=== PATIENT | female | born 2000 | race Caucasian/White ===

== ENCOUNTER 2020-02-18 22:08 | Inpatient (IN) ==
[2020-02-18] MEDS: LACTATED RINGERS 1,000 ML IV SCH (22:36)
[2020-02-18] MEDS ORDERED: BUTORPHANOL 2 MG/ML VIAL IV PRN (22:45)
[2020-02-18] MEDS ORDERED: MEPERIDINE 50 MG/1 ML VIAL IV PRN (22:45)
[2020-02-18] MEDS ORDERED: LACTATED RINGERS 500 ML IV PRN (22:45)
[2020-02-18 23:34] LABS: Basophils % 0.2 % (0.0-0.8); Eosinophils # 0.1 10*3/uL (0.0-0.87); Eosinophils % 0.6 % (0.00-10.9); Hematocrit 31.9 VOL% (35.7-47.0); Hemoglobin 10.6 GM/DL (12.0-16.0); Immature Granulocytes % 0.8 %; Immature Granulocytes Absolute 0.08 #; Lymphocytes # 2.9 10*3/uL (1.4-4.0); Lymphocytes % 29.3 % (21.3-54.2); Mean Corpuscular HGB Conc 33.2 GM/DL (32-36); Mean Corpuscular Volume 89.4 FL (87-102); Mean Platelet Volume 9.8 FL (9.6-12.0); Monocytes % 6.7 % (1.7-12.7); Neutrophils % 62.4 % (38.7-73.9); Platelet Count 169 T/CUMM (130-400); Red Blood Count 3.57 MC/CUMM (3.8-5.5); Red Cell Distribution Width 13.1 % (9.3-17.3)
[2020-02-19 00:05] LABS: Albumin 2.5 G/DL (3.4-5.0); Bilirubin,Total 0.4 MG/DL (0.2-1.0); Osmolality,Calculated 275.5 MOS/KG (273-304); Total Protein 5.8 G/DL (6.4-8.3)
[2020-02-19] MEDS: LACTATED RINGERS 1,000 ML IV SCH (06:37)
[2020-02-19] MEDS: ONDANSETRON 4 MG/2 ML VIAL IV PRN (23:35)
[2020-02-20] MEDS ORDERED: OXYTOCIN/LR 20 UNIT/1,000 ML BAG IV SCH (05:00)
[2020-02-20] MEDS: LACTATED RINGERS 1,000 ML IV SCH (05:15)
[2020-02-20] MEDS: ONDANSETRON 4 MG/2 ML VIAL IV PRN ×2 (07:31→15:22)
[2020-02-20] MEDS ORDERED: TERBUTALINE 1 MG/1 ML VIAL ONE (08:08)
[2020-02-20] MEDS ORDERED: TERBUTALINE 1 MG/1 ML VIAL SUBCUT ONE (08:09)
[2020-02-20] MEDS ORDERED: LACTATED RINGERS 500 ML IV ONE (08:41)
[2020-02-20] MEDS ORDERED: NALOXONE 0.4 MG/ML VIAL IV PRN (08:41)
[2020-02-20] MEDS ORDERED: diphenhydrAMINE 50 MG/1 ML VIAL IV PRN (08:41)
[2020-02-20] MEDS ORDERED: FAMOTIDINE 20 MG/2 ML VIAL IV ONE (08:41)
[2020-02-20] MEDS ORDERED: ePHEDrine 50 MG/ML VIAL IV PRN (08:41)
[2020-02-20] MEDS ORDERED: CITRIC ACID/SODIUM CITRATE 30 ML UDCUP PO ONE (08:41)
[2020-02-20] MEDS ORDERED: hydrOXYzine HCL 25 MG/1 ML VIAL IM PRN (08:41)
[2020-02-20] MEDS ORDERED: PROMETHAZINE 25 MG/1 ML VIAL IM PRN (08:41)
[2020-02-20] MEDS ORDERED: fentaNYL 2 MCG/ROPIV 0.2% EPID 100 ML EPIDURAL SCH (09:00)
[2020-02-20] MEDS ORDERED: ceFAZolin 2,000 MG in PREMIX 1 EACH IV ONE (09:45)
[2020-02-20] MEDS ORDERED: TRANEXAMIC ACID 1,000 MG/10 ML VIAL ONE (09:47)
[2020-02-20] MEDS ORDERED: METHYLERGONOVINE 0.2 MG/1 ML AMP ONE (09:47)
[2020-02-20] MEDS ORDERED: miSOPROStoL 200 MCG TABLET ONE (09:47)
[2020-02-20] MEDS ORDERED: CARBOPROST TROMETHAMINE 250 MCG/ML AMP IM ONE (09:47)
[2020-02-20 10:54] LABS: Cord Arterial Blood HCO3 19.2 MMOL/L
[2020-02-20 10:56] LABS: Cord Venous Blood HCO3 14.4 MMOL/L; Cord Venous Blood PCO2 60.1 MMHG; Cord Venous Blood PO2 15.1
[2020-02-20] MEDS ORDERED: propofoL 200 MG/20 ML VIAL IV ONE (11:03)
[2020-02-20] MEDS ORDERED: PHENYLEPHRINE 10 MG/1 ML VIAL IV ONE (11:04)
[2020-02-20] MEDS ORDERED: ACETAMINOPHEN 1,000 MG/100 ML VIAL IV ONE (11:04)
[2020-02-20] MEDS ORDERED: MORPHINE 10 MG/10 ML VIAL ONE (11:04)
[2020-02-20] MEDS ORDERED: LIDOCAINE MPF 2% /EPI 20 ML VIAL ONE (11:04)
[2020-02-20] MEDS ORDERED: KETOROLAC 30 MG/1 ML VIAL ONE (11:04)
[2020-02-20] MEDS ORDERED: ONDANSETRON 4 MG/2 ML VIAL ONE (11:04)
[2020-02-20] MEDS ORDERED: SODIUM CHLORIDE 0.9% 100 ML IV ONE (11:04)
[2020-02-20] MEDS ORDERED: MEASLES/MUMPS/RUBELLA VACCINE 0.5 ML VIAL SUBCUT ONE (11:23)
[2020-02-20] MEDS ORDERED: OXYTOCIN/LR 20 UNIT/1,000 ML BAG IV ONE (11:23)
[2020-02-20] MEDS ORDERED: RHO(D) IMMUNE GLOBULIN 300 MCG SYRINGE IM ONE (11:23)
[2020-02-20] MEDS ORDERED: WITCH HAZEL PADS 100/JAR TOP PRN (11:23)
[2020-02-20] MEDS ORDERED: ONDANSETRON 4 MG/2 ML VIAL IV PRN (11:23)
[2020-02-20] MEDS ORDERED: BENZOCAINE 20%/MENTHOL 0.5% SPRAY 56 GM CAN TOP PRN (11:23)
[2020-02-20] MEDS ORDERED: BISACODYL 10 MG SUPP RECTAL PRN (11:23)
[2020-02-20] MEDS ORDERED: DIPH/TET/ACEL PERT BOOSTER VACCINE 0.5 ML VIAL IM ONE (11:23)
[2020-02-20] MEDS ORDERED: LANOLIN 50% CREAM 0.3 OZ TUBE TOP PRN (11:23)
[2020-02-20] MEDS ORDERED: HYDROCORTISONE 2.5% RECTAL CREAM 30 GM TUBE TOP PRN (11:23)
[2020-02-20] MEDS ORDERED: oxyCODONE/ACETAMINOPHEN 5-325 MG TABLET PO PRN (11:23)
[2020-02-20] MEDS ORDERED: ACETAMINOPHEN 325 MG TABLET PO PRN (11:23)
[2020-02-20] MEDS ORDERED: SODIUM CHLORIDE 0.9% 50 ML IV ONE (17:44)
[2020-02-20] MEDS: ceFAZolin 1,000 MG in SYRINGE 1 EACH IV SCH (17:53)
[2020-02-21] MEDS: ceFAZolin 1,000 MG in SYRINGE 1 EACH IV SCH (02:14)
[2020-02-21] MEDS: DOCUSATE SODIUM 100 MG CAPSULE PO SCH ×3 (02:59→21:09)
[2020-02-21 06:11] LABS: Basophils % 0.3 % (0.0-0.8); Eosinophils % 0.3 % (0.00-10.9); Hematocrit 26.7 VOL% (35.7-47.0); Hemoglobin 8.3 GM/DL (12.0-16.0); Immature Granulocytes % 0.8 %; Lymphocytes # 2.6 10*3/uL (1.4-4.0); Lymphocytes % 21.5 % (21.3-54.2); Mean Corpuscular HGB Conc 31.1 GM/DL (32-36); Mean Corpuscular Volume 93.4 FL (87-102); Mean Platelet Volume 9.6 FL (9.6-12.0); Monocytes % 7.9 % (1.7-12.7); Neutrophils % 69.2 % (38.7-73.9); Platelet Count 144 T/CUMM (130-400); Red Blood Count 2.86 MC/CUMM (3.8-5.5); Red Cell Distribution Width 13.2 % (9.3-17.3); White Blood Count 11.9 T/CUMM (4-12)
[2020-02-21] MEDS: oxyCODONE/ACETAMINOPHEN 5-325 MG TABLET PO PRN (15:17)
[2020-02-21] MEDS: IBUPROFEN 800 MG TABLET PO PRN (15:17)
[2020-02-22] MEDS: DOCUSATE SODIUM 100 MG CAPSULE PO SCH ×2 (09:03→21:53)
[2020-02-22] MEDS: IBUPROFEN 800 MG TABLET PO PRN (09:24)
[2020-02-22] MEDS: oxyCODONE/ACETAMINOPHEN 5-325 MG TABLET PO PRN (09:24)
[2020-02-22] MEDS ORDERED: SIMETHICONE CHEW 80 MG TABLET PO PRN (11:58)
[2020-02-22] MEDS: MAGNESIUM HYDROXIDE SUSP 30 ML UDCUP PO PRN (12:11)
[2020-02-23] MEDS: oxyCODONE/ACETAMINOPHEN 5-325 MG TABLET PO PRN (07:24)
[2020-02-23] MEDS: DOCUSATE SODIUM 100 MG CAPSULE PO SCH (07:25)
[2020-02-23 07:57] VITALS: BP 136/90
[2020-02-23] MEDS: MAGNESIUM HYDROXIDE SUSP 30 ML UDCUP PO PRN (08:48)
== END 2020-02-23 13:05 | disposition home or self-care (01) | DRG 788 ==
LOC: N.LDOUT 22:08 → N.LD 22:11 → N.OB 02-20 15:30
PROVIDERS: ADMIT Specialist; ATTEND Specialist
PROC: LDCSECT (ICD-10-PCS; 2020-02-20 10:00)

== ENCOUNTER 2020-08-16 16:42 | Observation (INO) ==
[2020-08-16] MEDS ORDERED: METOCLOPRAMIDE 10 MG/2 ML VIAL IV STA (17:25)
[2020-08-16] MEDS ORDERED: ONDANSETRON 4 MG/2 ML VIAL IV STA (17:25)
[2020-08-16] MEDS ORDERED: SODIUM CHLORIDE 0.9% 1,000 ML IV STA (17:25)
[2020-08-16] MEDS ORDERED: PANTOPRAZOLE 40 MG VIAL IV STA (17:25)
[2020-08-16 18:00] LABS: Basophils % 0.5 % (0.0-0.8); Eosinophils # 0.1 10*3/uL (0.0-0.87); Eosinophils % 0.7 % (0.00-10.9); Hematocrit 37.4 VOL% (35.7-47.0); Hemoglobin 13.6 GM/DL (12.0-16.0); Immature Granulocytes % 0.4 %; Immature Granulocytes Absolute 0.03 #; Lymphocytes # 2.5 10*3/uL (1.4-4.0); Lymphocytes % 30.5 % (21.3-54.2); Mean Corpuscular HGB Conc 36.4 GM/DL (32-36); Mean Corpuscular Volume 88.4 FL (87-102); Mean Platelet Volume 9.5 FL (9.6-12.0); Monocytes % 10.1 % (1.7-12.7); Neutrophils % 57.8 % (38.7-73.9); Platelet Count 215 T/CUMM (130-400); Red Blood Count 4.23 MC/CUMM (3.8-5.5); Red Cell Distribution Width 11.7 % (9.3-17.3); White Blood Count 8.3 T/CUMM (4-12)
[2020-08-16 18:18] LABS: Calcium 8.5 MG/DL (8.5-10.1); Osmolality,Calculated 269.8 MOS/KG (273-304); Potassium 3.3 MMOL/L (3.5-5.1)
[2020-08-16 18:24] LABS: Blood, Urine Negative (Negative); Glucose,Urine (UA) Negative (Negative); Ketones,Urine 80 mg/dL (Negative); Mucus,Urine Many /LPF (Occasional); Nitrite,Urine Negative (Negative); Protein,Urine 30 MG/DL; RBC,Urine 5 /HPF (0-4); Squamous Epithelial Cell,Urine Few /HPF (0-10); Urine Appearance Slightly Hazy (Clear); Urine Color Amber (Yellow); WBC,Urine 12 /HPF (0-6)
[2020-08-16 18:25] LABS: Bilirubin,Urine Small mg/dL (Negative)
[2020-08-16] MEDS ORDERED: POTASSIUM BICARB EFFERVESCENT 25 MEQ TABLET PO ONE (18:35)
[2020-08-16] MEDS ORDERED: cefTRIAXone 1,000 MG in SODIUM CHLORIDE 0.9% 100 ML IV STA (18:35)
[2020-08-16] MEDS ORDERED: BISACODYL 10 MG SUPP RECTAL PRN (18:39)
[2020-08-16] MEDS ORDERED: IBUPROFEN 800 MG TABLET PO PRN (18:39)
[2020-08-16] MEDS ORDERED: ACETAMINOPHEN 325 MG TABLET PO PRN (18:39)
[2020-08-16] MEDS ORDERED: MAGNESIUM HYDROXIDE SUSP 30 ML UDCUP PO PRN (18:39)
[2020-08-16] MEDS: DOCUSATE SODIUM 100 MG CAPSULE PO SCH ×2 (19:52)
[2020-08-16] MEDS: LACTATED RINGERS 1,000 ML IV SCH (20:48)
[2020-08-17] MEDS: ONDANSETRON 4 MG/2 ML VIAL IV PRN ×2 (04:20→09:10)
[2020-08-17] MEDS: LACTATED RINGERS 1,000 ML IV SCH ×2 (04:25→12:59)
[2020-08-17 06:06] LABS: Basophils % 0.5 % (0.0-0.8); Eosinophils # 0.1 10*3/uL (0.0-0.87); Hemoglobin 10.9 GM/DL (12.0-16.0); Immature Granulocytes % 0.5 %; Immature Granulocytes Absolute 0.03 #; Lymphocytes # 2.2 10*3/uL (1.4-4.0); Lymphocytes % 36.1 % (21.3-54.2); Mean Corpuscular HGB Conc 35.2 GM/DL (32-36); Mean Corpuscular Volume 91.2 FL (87-102); Mean Platelet Volume 9.4 FL (9.6-12.0); Monocytes % 9.7 % (1.7-12.7); Neutrophils % 52.2 % (38.7-73.9); Platelet Count 174 T/CUMM (130-400); Red Cell Distribution Width 11.7 % (9.3-17.3)
[2020-08-17 06:23] LABS: Calcium 8.1 MG/DL (8.5-10.1); Osmolality,Calculated 268.8 MOS/KG (273-304); Potassium 3.6 MMOL/L (3.5-5.1)
[2020-08-17] MEDS: METOCLOPRAMIDE 10 MG/2 ML VIAL IV PRN (09:07)
[2020-08-17] MEDS: DOCUSATE SODIUM 100 MG CAPSULE PO SCH ×2 (09:19→21:46)
[2020-08-17] MEDS ORDERED: SCOPOLAMINE 1.5 MG PATCH TRANSDERM ONE (12:44)
[2020-08-17] MEDS ORDERED: SODIUM CHLORIDE 0.9% 100 ML IV ONE (17:32)
[2020-08-17] MEDS ORDERED: cefTRIAXone 1,000 MG in SYRINGE 1 EACH IV SCH (18:00)
[2020-08-17] MEDS ORDERED: THIAMINE INJ 100 MG, FOLIC ACID INJ 1 MG, MULTIVITAMIN INJ 10 ML in SODIUM CHLORIDE 0.9... IV ONE (20:00)
[2020-08-18] MEDS: LACTATED RINGERS 1,000 ML IV SCH (05:39)
[2020-08-18 07:16] VITALS: BP 102/53
[2020-08-18] MEDS: METOCLOPRAMIDE 10 MG/2 ML VIAL IV PRN (08:19)
[2020-08-18] MEDS: DOCUSATE SODIUM 100 MG CAPSULE PO SCH (08:21)
[2020-08-18] MEDS: ONDANSETRON 4 MG/2 ML VIAL IV PRN (08:22)
== END 2020-08-18 12:00 | disposition home or self-care (01) ==
LOC: N.ED 16:42 → N.EDINP 16:42 → N.OB 19:52
PROVIDERS: ADMIT Nurse Practitioner Family; ATTEND Specialist

== ENCOUNTER 2021-03-18 05:27 | Inpatient (IN) ==
[2021-03-18] MEDS ORDERED: LACTATED RINGERS 500 ML IV PRN (05:37)
[2021-03-18] MEDS ORDERED: ONDANSETRON 4 MG/2 ML VIAL IV PRN ×2 (05:37→08:29)
[2021-03-18] MEDS ORDERED: LACTATED RINGERS 1,000 ML IV ONE ×2 (05:49→07:36)
[2021-03-18] MEDS ORDERED: diphenhydrAMINE 50 MG/1 ML VIAL IV PRN (05:49)
[2021-03-18] MEDS ORDERED: CITRIC ACID/SODIUM CITRATE 30 ML UDCUP PO ONE (05:49)
[2021-03-18] MEDS ORDERED: FAMOTIDINE 20 MG/2 ML VIAL IV ONE (05:49)
[2021-03-18] MEDS ORDERED: ceFAZolin 2,000 MG/50 ML DUPLEX IV ONE (05:53)
[2021-03-18] MEDS ORDERED: LACTATED RINGERS 1,000 ML IV SCH ×2 (06:00)
[2021-03-18 06:32] LABS: Basophils % 0.3 % (0.0-0.8); Eosinophils # 0.1 10*3/uL (0.0-0.87); Eosinophils % 0.8 % (0.00-10.9); Hematocrit 34.6 VOL% (35.7-47.0); Hemoglobin 11.2 GM/DL (12.0-16.0); Immature Granulocytes % 0.6 %; Immature Granulocytes Absolute 0.06 #; Lymphocytes # 2.5 10*3/uL (1.4-4.0); Lymphocytes % 25.1 % (21.3-54.2); Mean Corpuscular HGB Conc 32.4 GM/DL (32-36); Mean Platelet Volume 10.2 FL (9.6-12.0); Monocytes % 8.6 % (1.7-12.7); Neutrophils % 64.6 % (38.7-73.9); Platelet Count 166 T/CUMM (130-400); Red Blood Count 4.17 MC/CUMM (3.8-5.5); Red Cell Distribution Width 14.5 % (9.3-17.3); White Blood Count 9.8 T/CUMM (4-12)
[2021-03-18] MEDS ORDERED: BUPIVACAINE SPINAL 0.75% 2 ML AMP SPINAL ONE (07:00)
[2021-03-18 07:04] LABS: Albumin 2.6 G/DL (3.4-5.0); Bilirubin,Total 0.7 MG/DL (0.20-1.00); Calcium 8.5 MG/DL (8.5-10.1); Osmolality,Calculated 271.7 MOS/KG (273-304); Potassium 3.9 MMOL/L (3.5-5.1); Total Protein 6.1 G/DL (6.4-8.2)
[2021-03-18] MEDS ORDERED: METHYLERGONOVINE 0.2 MG/1 ML AMP ONE (07:04)
[2021-03-18] MEDS ORDERED: miSOPROStoL 200 MCG TABLET ONE (07:04)
[2021-03-18] MEDS ORDERED: OXYTOCIN/LR 20 UNIT/1,000 ML BAG IV ONE ×3 (07:04→08:29)
[2021-03-18] MEDS ORDERED: CARBOPROST TROMETHAMINE 250 MCG/ML AMP IM ONE (07:04)
[2021-03-18] MEDS ORDERED: TRANEXAMIC ACID 1,000 MG/10 ML VIAL ONE (07:04)
[2021-03-18] MEDS ORDERED: SODIUM CHLORIDE 0.9% 0 ML IV ONE (07:05)
[2021-03-18] MEDS ORDERED: ONDANSETRON 4 MG/2 ML VIAL ONE ×2 (07:07→07:40)
[2021-03-18] MEDS ORDERED: ePHEDrine 50 MG/ML VIAL ONE (07:32)
[2021-03-18] MEDS ORDERED: PHENYLEPHRINE 1 MG/10 ML SYRINGE IV ONE (07:36)
[2021-03-18] MEDS ORDERED: ACETAMINOPHEN INJ 1,000 MG/100 ML VIAL IV ONE (07:49)
[2021-03-18] MEDS ORDERED: KETOROLAC 30 MG/1 ML VIAL ONE (07:54)
[2021-03-18 08:05] LABS: Cord Venous Blood HCO3 21.5 MMOL/L; Cord Venous Blood PCO2 45.9 MMHG; Cord Venous Blood PO2 26.3
[2021-03-18 08:13] LABS: Bilirubin,Urine Negative (Negative); Blood, Urine Negative (Negative); Glucose,Urine (UA) Negative (Negative); Ketones,Urine 20 mg/dL (Negative); Mucus,Urine Occasional /LPF (Occasional); Nitrite,Urine Negative (Negative); Protein,Urine Negative; RBC,Urine <1 /HPF (0-4); Urine Appearance CLEAR (Clear); Urine Color Yellow (Yellow); Urine Urobilinogen < 2.0 EU/DL (0.2-1.0)
[2021-03-18] MEDS ORDERED: BENZOCAINE 20%/MENTHOL 0.5% SPRAY 56 GM CAN TOP PRN (08:29)
[2021-03-18] MEDS ORDERED: LANOLIN 50% CREAM 0.3 OZ TUBE TOP PRN (08:29)
[2021-03-18] MEDS ORDERED: RHO(D) IMMUNE GLOBULIN 300 MCG SYRINGE IM ONE (08:29)
[2021-03-18] MEDS ORDERED: BISACODYL 10 MG SUPP RECTAL PRN (08:29)
[2021-03-18] MEDS ORDERED: ACETAMINOPHEN 325 MG TABLET PO PRN (08:29)
[2021-03-18] MEDS ORDERED: MEASLES/MUMPS/RUBELLA VACCINE 0.5 ML VIAL SUBCUT ONE (08:29)
[2021-03-18] MEDS ORDERED: WITCH HAZEL PADS 100/JAR TOP PRN (08:29)
[2021-03-18] MEDS ORDERED: HYDROCORTISONE 2.5% RECTAL CREAM 30 GM TUBE TOP PRN (08:29)
[2021-03-18] MEDS ORDERED: DIPH/TET/ACEL PERT BOOSTER VACCINE 0.5 ML VIAL IM ONE (08:29)
[2021-03-18] MEDS ORDERED: oxyCODONE/ACETAMINOPHEN 5-325 MG TABLET PO PRN (08:29)
[2021-03-18] MEDS: ACETAMINOPHEN 500 MG TABLET PO SCH ×2 (15:19→22:23)
[2021-03-18] MEDS: KETOROLAC 30 MG/1 ML VIAL IV SCH ×2 (15:24→22:16)
[2021-03-18] MEDS: DOCUSATE SODIUM 100 MG CAPSULE PO SCH (22:23)
[2021-03-19] MEDS: ACETAMINOPHEN 500 MG TABLET PO SCH (03:05)
[2021-03-19] MEDS: oxyCODONE/ACETAMINOPHEN 5-325 MG TABLET PO PRN ×2 (03:09→15:40)
[2021-03-19] MEDS: KETOROLAC 30 MG/1 ML VIAL IV SCH (04:12)
[2021-03-19 05:50] LABS: Basophils % 0.3 % (0.0-0.8); Eosinophils # 0.1 10*3/uL (0.0-0.87); Eosinophils % 0.6 % (0.00-10.9); Hematocrit 26.2 VOL% (35.7-47.0); Immature Granulocytes % 0.8 %; Immature Granulocytes Absolute 0.07 #; Lymphocytes # 1.7 10*3/uL (1.4-4.0); Mean Corpuscular HGB Conc 32.8 GM/DL (32-36); Mean Corpuscular Volume 82.9 FL (87-102); Mean Platelet Volume 10.3 FL (9.6-12.0); Monocytes % 7.9 % (1.7-12.7); Neutrophils % 71.4 % (38.7-73.9); Platelet Count 147 T/CUMM (130-400); Red Cell Distribution Width 14.5 % (9.3-17.3)
[2021-03-19 05:51] LABS: Hemoglobin 8.6 GM/DL (12.0-16.0); Red Blood Count 3.16 MC/CUMM (3.8-5.5)
[2021-03-19] MEDS: DOCUSATE SODIUM 100 MG CAPSULE PO SCH ×3 (09:25→20:52)
[2021-03-19] MEDS: FERROUS SULFATE 325 MG TABLET PO SCH ×2 (13:37→20:52)
[2021-03-19] MEDS: IBUPROFEN 800 MG TABLET PO PRN (14:20)
[2021-03-19 18:13] VITALS: BP 119/75
[2021-03-20] MEDS: oxyCODONE/ACETAMINOPHEN 5-325 MG TABLET PO PRN (03:58)
[2021-03-20] MEDS: IBUPROFEN 800 MG TABLET PO PRN ×2 (03:58→10:40)
[2021-03-20] MEDS: DOCUSATE SODIUM 100 MG CAPSULE PO SCH (10:40)
[2021-03-20] MEDS: FERROUS SULFATE 325 MG TABLET PO SCH (10:40)
== END 2021-03-20 11:32 | disposition home or self-care (01) | DRG 788 ==
LOC: N.LD 05:27 → N.OB 11:59 → N.LD 03-19 18:00
PROVIDERS: ADMIT Specialist; ATTEND Specialist
PROC: LDCSECT (ICD-10-PCS; 2021-03-18 07:05)